=== PATIENT | female | born 1965 | race Caucasian/White ===

== ENCOUNTER 2024-01-27 14:18 | Outpatient (CLI) | payer BC, SELFPAY ==
--- NOTE | ~2024-01-27 | CT_ITS ---
EXAMINATION:CT lung screening DATE: 01/27/2024 14:45 INDICATION: Personal history of nicotine dependence. Current smoker with 30 pack year history. TECHNIQUE: Computed tomography (CT) of the chest was performed without intravenous contrast. Automate d exposure control and iterative reconstruction technique were employed. The dose-length product (DLP ) was 61.04 mGy-cm. COMPARISON: None. FINDINGS: There is a 5 mm nodule in right upper lobe. There is mild scarring at the lung apices. A ca lcified right lung nodule is consistent with old granulomatous disease. There is mild atelectasis corrie aterally. No pleural effusion. The heart size is normal. There are coronary artery calcifications. No pericardial effusion. There are bilateral breast implants. There is mild thoracic spondylosis. IMPRESSION: 1. Lung-RADS category 2: Benign appearance or behavior. Continue annual screening with noncontrast lo w-dose chest CT in 12 months. Reviewed, dictated and finalized at location E. IMPRESSION: 1. Lung-RADS category 2: Benign appearance or behavior. Continue annual screeni ng with noncontrast low-dose chest CT in 12 months.
== END 2024-01-27 14:19 ==
LOC: MICIMG 14:23
PROVIDERS: PCP Family Medicine; Visit Provider Family Medicine
DX: Z12.2 Encounter for screening for malignant neoplasm of respiratory organs (principal); F17.210 Nicotine dependence, cigarettes, uncomplicated
CPT/HCPCS: 71271

== ENCOUNTER 2024-09-26 13:54 | Outpatient (CLI) | payer BC, SELFPAY ==
--- NOTE | ~2024-09-26 | DEXA_ITS ---
Bone Density Report Name: RAHEEM CABELLO Age: 59 Sex: Female Ethnicity: White Date of : 1965 Indication: screening for osteoporosis; Referring Provider: SAEID, [facility] Study: Bone densitometry was performed. Exam Date: September 26, 2024 Accession number: [id number] Bone Density: Region BMD T-score Z-score Classification AP Spine(L1-L4) 1.129 0.7 2.0 Normal Femoral Neck (Left) 0.614 -2.1 -0.9 Osteopenia Total Hip (Left) 0.864 -0.6 0.2 Normal Femoral Neck (Right) 0.585 -2.4 -1.2 Osteopenia Total Hip (Right) 0.865 -0.6 0.2 Normal Total Hip Mean 0.865 -0.6 0.2 Normal World Health Organization criteria for BMD impression classify patients as: Normal (T-score at or above -1.0), Osteopenia (T-score between -1.0 and -2.5), or Osteoporosis (T-score at or below -2.5). 10-year Fracture Risk: FRAX not reported because: Premenopausal woman Clinical Information Provided by Patient: Smokes Has used the following medications: Vitamin D, Calcium Patient maximum height was 62 No regular weight bearing exercise Drinks caffeinated beverages Onset of menses at age 14 Premenopausal Number of children 2 Missed period for more than 6 months in a row Impression: The patient's bone mass is within expected range for age, gender and ethnicity. The patient has risk factors, including: smoking. Discussion: BONE DENSITY IS WITHIN EXPECTED LIMITS FOR AGE, SEX AND RACE. Bone density is within expected limits for age, sex and race at all sites measured. The patient should follow a healthful lifestyle (good nutrition with adequate calcium and vitamin D, and appropriate weight-bearing exercise). Follow-Up: Consider repeating this study in 2 to 3 years to reassess this patient's status, or sooner if there is some new clinical indication. Reported by: CODIE on 09/26/2024 2:45:00 PM. Reviewed, dictated and finalized at location [facility]
== END 2024-09-26 13:55 | disposition home or self-care (01) ==
LOC: ANHIMG 13:56
PROVIDERS: PCP Family Medicine; Visit Provider Family Medicine
DX: Z78.0 Asymptomatic menopausal state (principal); Z13.820 Encounter for screening for osteoporosis
CPT/HCPCS: 77080